=== PATIENT | male | born 1935 | race Caucasian/White ===

== ENCOUNTER 2021-06-20 19:03 | Emergency (ER) | payer OTHER ==
[2021-06-20 19:53] VITALS: BP 116/84; PULSE 89; TEMP 96.9; BMI 20.5
== END 2021-06-21 01:40 ==
LOC: JER 19:03
DX: S09.90XA Unspecified injury of head, initial encounter (principal)
CPT/HCPCS: 70450-TC; 71045-TC-FY; 72125-TC; 72170-TC-FY; 99285-25